=== PATIENT | female | born 1995 | race Caucasian/White ===

== ENCOUNTER 2021-07-03 10:57 | Emergency (ER) | payer OTHER, SELFPAY ==
--- NOTE | ~2021-07-03 | CT_ITS ---
EXAMINATION: CT brain wo con DATE: 07/03/2021 11:52 INDICATION: Right facial paralysis. TECHNIQUE: Computed tomography (CT) of the head was performed without intravenous contrast. The mA wa s adjusted according to patient size. Iterative reconstruction technique was employed. The dose-lengt h product was 605.33 mGy-cm. COMPARISON: Neck CT 03/16/2016 FINDINGS: There is no intracranial hemorrhage, acute infarction, or abnormal intracranial mass lesion . The ventricles are normal in size. There is mild mucosal thickening in the paranasal sinuses. The o rbits are normal. The mastoid air cells are normal. IMPRESSION: 1. Normal brain. Reviewed, dictated and finalized at location B. STOR RELATIONS COORDINATOR IMPRESSION: 1. Normal brain.
[2021-07-03 11:00] VITALS: BP 137/80; PULSE 91; RESP 14; TEMP 36.7; O2SAT 100
--- NOTE | 2021-07-03 11:25 | ED.GENADULT ---
HPI - General Adult General Chief complaint: Neuro Symptoms/Deficit Stated complaint: right side face numbness Time Seen by Provider: 07/03/21 11:00 Source: patient Mode of arrival: ambulatory Limitations: no limitations History of Present Illness HPI narrative: Patient is 25-year-old female presented with chief complaint of paralysis to the right side of her face that began yesterday. Patient reports that she is having trouble chewing, closing her eye completely on the right side of her face. She denies issues with speech, visual changes, headache, weakness to her extremities. She denies any head trauma. Patient reports that she had a viral illness last week. Patient denies any present fever, chills, nausea, vomiting, headache, abdominal pain, chest pain or shortness of breath. 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 EYES: Denies visual changes, redness, or discharge. ENT: Denies rhinorrhea, congestion, sore throat, or otalgia. CARDIOVASCULAR: Denies chest pain, palpitations, or edema. RESPIRATORY: Denies cough or dyspnea. GASTROINTESTINAL: Denies abdominal pain, nausea, vomiting, or diarrhea. GENITOURINARY: Denies dysuria or hematuria. SKIN: Denies rash or itching. MUSCULOSKELETAL: Denies back pain, joint pain, or myalgia. NEUROLOGIC: Reports facial paralysis denies headache, numbness, dizziness, or weakness. PSYCHIATRIC: Denies anxiety or depression. Exam Narrative: GENERAL: Well-appearing, well-nourished, and in no acute distress. HEAD: Normocephalic, atraumatic. No sign of trauma. EYES: PERRLA and EOMI. ENT: Nares clear, no rhinorrhea or epistaxis. Mucous membranes moist. Oropharynx without tonsillar hypertrophy exudate or other lesions. Bilateral TMs pearly goldman nonbulging. No hemotympanum. NECK: Supple. No adenopathy or masses. Range of motion intact. CHEST: Clear to auscultation. No respiratory distress. No wheezes rales or rhonchi HEART: Regular rate and rhythm. EXTREMITIES: Chronic deformities to fingers on both hands. Range of motion at baseline. SKIN: Warm, dry, no rash. NEURO: Alert and oriented x3. Facial asymmetry to the right of face- there is droop. Patient not able to voluntarily fully close eye, lift eyebrow, or smile on the right side. Sensation intactn PSYCH: Normal mood and affect. Course Vital Signs Vital signs: Vital Signs Temperature 98.0 F 07/03/21 11:00 Pulse Rate 91 07/03/21 11:00 Respiratory Rate 14 07/03/21 11:00 Blood Pressure 137/80 07/03/21 11:00 Pulse Oximetry 100 07/03/21 11:00 Temperature 97.8 F 07/03/21 13:10 Pulse Rate 68 07/03/21 13:10 Respiratory Rate 14 07/03/21 13:10 Blood Pressure 114/68 07/03/21 13:10 Pulse Oximetry 100 07/03/21 13:10 Medical Decision Making MDM Narrative Medical decision making narrative: Patient brain CT and lab work were within normal limits. Patient's hand signs of Sahni's palsy. Patient will be started on prednisone as it is recommended by [facility] for all [place] [facility] patients. Patient will also be started on antivirals due to facial symptoms.She has been instructed that if she develops any neurological deficits to [facility]. She has been instructed to maintain close follow up with her PCP as they may refer to neurology. Patient has been instructed to use artificial tears to keep right eye moist and to manually close the eye when sleeping/possible. Patient verbalized agreement with plan and denies any other needs or concerns. Differential Diagnosis Differential Diagnosis: CVA, sahni's palsy, trigeminal neuralgia Vital Signs Vital Signs: Vital Signs Temperature 98.0 F 07/03/21 11:00 Pulse Rate 91 07/03/21 11:00 Respiratory Rate 14 07/03/21 11:00 Blood Pressur
--- NOTE | 2021-07-03 11:45 | PC.NURSE ---
pt. to bathroom for urine sample
[2021-07-03 11:46] VITALS: BP 100/59; PULSE 59; RESP 12; O2SAT 100
[2021-07-03 11:51] LABS: Basophils Absolute Auto 0.1 K/mm3 (0.0-0.1); Basophils Percent Auto 0.5 % (0.2-1.2); Hematocrit 44.9 % (37.0-47.0); Hemoglobin 14.6 g/dL (12.0-15.0); Immature Granulocyte Absolute 0.06 K/mm3 (0.00-0.031); Immature Granulocyte Percent A 0.5 % (0-0.5); Lymphocytes Absolute Auto 0.79 K/mm3 (0.9-3.2); Lymphocytes Percent Auto 7.2 % (18.3-44.2); Mean Corpuscular HGB Conc 32.5 g/dl (32-36); Mean Corpuscular Hemoglobin 30.9 pg (26-34); Mean Corpuscular Volume 95.1 fl (80-100); Mean Platelet Volume 8.7 fl (7.4-10.4); Monocytes Absolute Auto 0.2 K/mm3 (0.1-0.6); Monocytes Percent Auto 1.6 % (2.6-8.5); Neutrophils Percent Auto 90.2 % (45.5-73.1); Platelet Count Result 337 k/mm3 (150-375); Red Blood Count 4.72 M/mm3 (4.2-5.4); Red Cell Distribution Width 12.8 % (11.5-14.5)
[2021-07-03 12:12] LABS: Add Urine Microscopic? NO; Appearance Urine Clear (Clear); Bilirubin Urine Negative (Negative); Blood Urine Negative (Negative); Color Urine Yellow (Yellow); Glucose Urine UA Negative (Negative); Ketones Urine Negative (Negative); Leukocyte Esterase Ur Negative LEU/UL (Negative); Nitrate Urine Negative (Negative); Protein Urine Negative (Negative); Specific Grav Ur 1.019 (1.001-1.035); Urobilinogen Urine Negative mg/dL (<2.0)
[2021-07-03 12:23] LABS: Alanine Aminotransferase 21 U/L (4-35); Albumin Level 4.9 g/dL (3.5-5.1); Alkaline Phosphatase 80 U/L (38-126); Anion Gap 11 mmol/L (8-16); Aspartate Amino Transferase 33 U/L (14-36); Bilirubin,Total 0.4 mg/dL (0.2-1.3); Blood Urea Nitrogen 21 mg/dL (7-17); CRP 0.5 mg/dL (<1.0); Calcium 10.2 mg/dL (8.4-10.2); Carbon Dioxide 23 mmol/L (22-30); Chloride 104 mmol/L (98-107); Estimated CRCL calculation 82 ml/min; Estimated Glomerular Filt Rate > 60; Glucose 137 mg/dL (65-110); Potassium 4.8 mmol/L (3.4-5.0); Sodium 138 mmol/L (137-145)
[2021-07-03 13:10] VITALS: BP 114/68; PULSE 68; RESP 14; TEMP 36.6; O2SAT 100
== END 2021-07-03 13:10 | disposition home or self-care (01) ==
PROVIDERS: Physician Assistant; Emergency Provider Family Medicine
DX: G51.0 Bell's palsy (principal)
CPT/HCPCS: 36415; 70450; 80053; 81003; 85025; 86140; 99284